=== PATIENT | female | born 1975 | race Caucasian/White ===

== ENCOUNTER 2023-10-07 20:17 | Observation (INO) ==
[2023-10-07] MEDS ORDERED: MUCOMYST 20% NEB NEB STA (20:45)
[2023-10-07] MEDS ORDERED: LACTATED RINGERS 1,000 ML IV STA (20:45)
[2023-10-07] MEDS ORDERED: ALBUTEROL 0.083% NEB NEB STA ×2 (20:45→22:05)
[2023-10-07] MEDS ORDERED: ZOSYN 3.375 GM 3.375 GM in SODIUM CHLORIDE 50 ML IV STA (20:45)
[2023-10-07] MEDS ORDERED: DUONEB NEB STA (20:45)
[2023-10-07 21:21] LABS: HEMATOCRIT 45.3 % (37.0-47.0); IMMATURE GRANULOCYTE % (AUTO) 0.4 % (0.0-5.0); LYMPHOCYTES # (AUTO) 0.4 K/uL (0.60-3.4); LYMPHOCYTES % (AUTO) 7.6 (10.0-50.0); MEAN CORPUSCULAR HEMOGLOBIN 31.1 pg (27.0-31.0); MEAN CORPUSCULAR HGB CONC 33.1 (31.8-35.4); MEAN CORPUSCULAR VOLUME 93.8 fl (81.0-99.0); MONOCYTES # (AUTO) 0.1 K/uL (0.4-2.0); MONOCYTES % (AUTO) 1.7 (0-10); NEUTROPHILS # (AUTO) 4.7 K/ul (2.0-6.9); NEUTROPHILS % (AUTO) 90.3 % (42.2-75.2); PLATELET COUNT 219 10^3/uL (140-440); RDW COEFFICIENT OF VARIATION 13.2 % (11.6-14.8); RED BLOOD COUNT 4.83 10^6/ul (4.20-5.40); WHITE BLOOD COUNT 5.25 K/ul (4.6-10.2)
--- NOTE | 2023-10-07 21:31 | ED.PDOC ---
General ED Provider: Dr. CHAPITO ELDRIDGE DO Chief Complaint: Shortness of Air Stated Complaint: 48-year-old female presents to the ER complaining of persistent cough and shortness of breath. This apparently is been going on since the beginning of August where she is been on 2 different rounds of antibiotics. She is currently on amoxicillin for reported strep throat. Denies measurable fever but has felt fevered. Denies sore throat but does report occasional cough and shortness of breath. No specific modifying factors. Reports mild chest pain as nonradiating substernal with no modifying factors. Denies abdominal pain, GI or symptoms. She is a current smoker and otherwise denies chronic medical problems. Denies recent travel, surgery, history of blood clots, cancer or hormone use. Time Seen by Provider: 10/07/23 20:24 Mode of Arrival: Walk-In Information Source: Patient Exam Limitations: No limitations Nursing and Triage Documentation Reviewed and Agree: Yes Review of Systems Review Of Systems Constitutional: Reports Chills, Fever, Malaise and Weakness; Denies Diaphoresis, Sweats or Loss of appetite Eyes: Reports No symptoms Ears, Nose, Mouth, Throat: Reports No symptoms Respiratory: Reports Cough and Shortness of Breath; Denies Stridor or Wheezing Cardiac: Reports Chest pain; Denies Edema or Irregular heart rate GI: Reports No symptoms : Reports No symptoms Musculoskeletal: Reports No symptoms Skin: Reports No symptoms Neurological: Reports No symptoms Endocrine: Reports No symptoms Hematologic/Lymphatic: Reports No symptoms All Other Systems: Reviewed and Negative PFSH Female Reproductive History Menstrual Hx Tubal Ligation: Yes Physical Exam Physical Exam Appearance: Reports Ill-appearing Ill-appearing: Moderate Pain Distress: None Eyes: Reports LORENA and Conjunctiva clear ENT: Reports Ears normal, Nose normal and Oropharynx normal Neck: Supple Respiratory: Reports Airway patent, Crackles and Rhonchi; Denies Breath sounds equal or Retractions Cardiovascular: Reports RRR and Pulses normal GI/: Reports Soft and Nontender Musculoskeletal: Reports Normal strength, ROM intact and No edema Skin: Reports Warm, Dry and Normal color Neurological: Reports Sensation intact, Motor intact, Reflexes intact and Cranial nerves intact Psychiatric: Reports Affect appropriate and Mood appropriate Re-Evaluation Re-Evaluation Time of Re-Evaluation: 00:19 Status: Improved Vital Signs Stable: Yes Appearance: NAD Lungs: Other (Improved.) Skin: Warm and Dry Neuro: Alert and Oriented X3 CV: RRR Critical Care Note Critical Care Note Total Critical Care Time (mins): 180 (Acute hypoxic respiratory failure requiring extended nebulizer treatment, cardiac monitoring, oxygen support, reassessments) Course Course 10/07/23 21:11 10/07/23 21:11 Orders, Labs, Meds: Lab Review 10/07/23 10/07/23 10/07/23 21:11 21:16 21:35 WBC 5.25 RBC 4.83 Hgb 15.0 Hct 45.3 MCV 93.8 MCH 31.1 H MCHC 33.1 RDW Coeff of Trish 13.2 Plt Count 219 Immature Gran % (Auto) 0.4 Neut % (Auto) 90.3 H Lymph % (Auto) 7.6 L [place] % (Auto) 1.7 Eos % (Auto) 0.0 Baso % (Auto) 0.0 Neut # (Auto) 4.7 Lymph # (Auto) 0.4 L [place] # (Auto) 0.1 L Eos # (Auto) 0.0 Baso # (Auto) 0.0 Immature Gran # (Auto) 0.0 Sodium 136.2 Potassium 4.52 Chloride 104.3 Carbon Dioxide 26.8 Anion Gap 9.62 BUN 8.2 Creatinine 0.62 Estimated GFR (MDRD) 104.00 BUN/Creatinine Ratio 13.22 Glucose 123.7 H Lactic Acid 0.73 Calcium 8.47 Total Bilirubin 0.18 L AST 72.0 H ALT 73.6 H Alkaline Phosphatase 89.2 NT-Pro-B Natriuret Pep 123 Total Protein 7.14 Albumin 3.86 Globulin 3.28 Albumin/Globulin Ratio 1.17 Procalcitonin < 0.05 Urine Color Yellow Urine Clarity Clear Urine pH 7.0 Ur Specific [place] 1.015 Urine Protein Negative Urine Glucose (UA) Negative Urine Ketones Negative Urine Blood 2+ H Urine Nitrite Negative Urine Bilirubin Negative Urine Urobilinogen 0.2 Ur Leukocyte Esterase Negative Urine Microscopic RBC 0-2 Urine Microscopic WBC 0-2 Ur Squamous Epith Cells 2-5 Urine Bacteria Trace Influ A Molecular Assay Positive by naat H Influ B Molecular Assay Positive by naat H SARS CoV-2 RNA Rapid KERON Negative Orders Category Date Time Status ADMIT PATIENT [facility] ADMISSION 10/08/23 00:08 Ordered EKG-(ED ONLY) Stat CARDIO 10/07/23 21:31 Completed NEBULIZER TREATMENT Routine CARDIO 10/08/23 00:12 Ordered NEBULIZER TREATMENT Stat CARDIO 10/07/23 20:48 Completed NEBULIZER TREATMENT Stat CARDIO 10/07/23 22:05 Completed OXYGEN Routine CARDIO 10/08/23 00:13 Ordered ACTIVITY TID CARE 10/08/23 00:11 Ordered NPO REMINDER: IMAGING ONCE CARE 10/07/23 22:13 Active TELEMETRY MONITORING TELE CARE 10/08/23 00:08 Ordered VITAL SIGNS Q4HR CARE 10/08/23 00:08 Ordered REGULAR DIET DIETARY 10/08/23 Breakfast Ordered ED APPLY O2 .ONCE EMERGENCY 10/07/23 20:45 Active ED GROUND WATER TECHNICIAN APPLIED .ONCE EMERGENCY 10/07/23 20:45 Active ED VITAL SIGNS Q1HR EMERGENCY 10/07/23 20:45 Active BLOOD CULTURE (ED ONLY) Stat LAB 10/07/23 20:45 Ordered CBC W/ AUTO DIFF Stat LAB 10/07/23 21:11 Completed CBC W/ AUTO DIFF Timed LAB 10/08/23 06:00 Ordered COMPREHENSIVE METABOLIC PANEL Stat LAB 10/07/23 21:11 Completed COMPREHENSIVE METABOLIC PANEL Timed LAB 10/08/23 06:00 Ordered COVID [SARS COV-2 RNA RAPID KERON] Stat LAB 10/07/23 21:16 Completed FLU A & B MOLECULAR [FLU A/B MOLECULAR] Stat LAB 10/07/23 21:16 Completed LACTIC ACID Stat LAB 10/07/23 21:11 Completed MAGNESIUM Timed LAB 10/08/23 06:00 Ordered PROBNP ED [NT-PROBNP(ED)] Stat LAB 10/07/23 21:11 Completed PROCALCITONIN Stat LAB 10/07/23 21:11 Completed URINALYSIS C & S IF INDICATED Stat LAB 10/07/23 21:35 Completed Acetaminophen [Tylenol] Meds 10/08/23 00:08 Ordered 500 mg PO Q4-6H PRN Acetylcysteine [Mucomyst 20% Neb] Meds 10/07/23 20:45 Discontinued 200 mg NEB ONCE STA Albuterol Sulfate 0.083% Neb [Albuterol 0.083% Neb] Meds 10/07/23 22:05 Discontinued 2.5 mg NEB ONCE STA Albuterol Sulfate 0.083% Neb [Albuterol 0.083% Neb] Meds 10/07/23 20:45 Discontinued 7.5 mg NEB ONCE STA Ascorbic Acid [Vitamin C] Meds 10/08/23 00:17 Stat 500 mg PO ONCE STA Ipratropium/Albuterol Neb [Duoneb] Meds 10/07/23 20:45 Discontinued 3 ml NEB ONCE STA Ipratropium/Albuterol Neb [Duoneb] Meds 10/08/23 06:00 Ordered 3 ml NEB RTQ6H Lorazepam [Ativan] Meds 10/08/23 00:13 Ordered 1 mg IVP Q4-6H PRN Magnesium Sulfate [Magnesium Sulfate 1 gm/2 ml Vial] Meds 10/08/23 00:13 Once 1 gm IVP ONCE ONE Melatonin Meds 10/08/23 00:08 Ordered 6 mg PO BEDTIME PRN Methylprednisolone Sod Succ [Solu-Medrol 500 mg] 500 mg Meds 10/08/23 00:13 Ordered 0.9 % Sodium Chloride [Sodium Chloride 100Ml] 100 ml IV ONCE Methylprednisolone Sod Succ/Pf [Solu-Medrol 125 mg] 250 Meds 10/08/23 09:00 Ordered mg 0.9 % Sodium Chloride [Sodium Chloride] 50 ml IV BID Multivitamin [Multivitamin Tablet] Meds 10/08/23 09:00 Ordered 1 tab PO DAILY Nicotine 21 mg [Nicoderm 21 mg] Meds 10/08/23 00:13 Ordered 1 patch TD DAILY PRN Ondansetron HCl/Pf [Zofran 4 mg/2 ml] Meds 10/08/23 00:08 Ordered 4 mg IVP Q4HR PRN Piperacillin Sodium/Tazobactam [Zosyn 3.375 gm] 3.375 Meds 10/07/23 20:45 Discontinued gm 0.9 % Sodium Chloride [Sodium Chloride] 50 ml IV ONCE Ringers Lactated Solution [Lactated Ringers] 1,000 ml Meds 10/07/23 20:45 Discontinued IV BOLUS Zinc Sulfate [Zinc-220] Meds 10/08/23 00:17 Stat 220 mg PO ONCE STA RESUSCITATION STATUS Routine OTHERS 10/08/23 00:08 Ordered CHEST, 1V AP ONLY Timed RADS 10/08/23 06:00 Ordered CHEST, 2 VIEWS PA & LAT Stat RADS 10/07/23 20:45 Completed CTA CHEST PE PROTOCOL Stat RADS 10/07/23 22:13 Completed Medications Discontinued Medications Generic Name Dose Route Start Last Admin Trade Name Jj PRN Reason Stop Dose Admin Acetylcysteine 200 mg 10/07/23 20:45 10/07/23 22:15 Acetylcysteine 200 Mg/Ml 4 Ml Neb.Vial NEB 10/07/23 20:46 200 mg ONCE STA Administration Albuterol Sulfate 7.5 mg 10/07/23 20:45 10/07/23 21:22 Albuterol Sulfate 0.083% Vial.Neb NEB 10/07/23 20:46 7.5 mg ONCE STA Administration Albuterol Sulfate 2.5 mg 10/07/23 22:05 10/07/23 22:15 Albuterol Sulfate 0.083% Vial.Neb NEB 10/07/23 22:06 2.5 mg ONCE STA Administration Albuterol/Ipratropium 3 ml 10/07/23 20:45 10/07/23 21:14 Ipratropium/Albuterol Vial.Neb [facility] 10/07/23 20:46 3 ml ONCE STA Administration Lactated Ringer's 1,000 mls @ 1,000 mls/hr 10/07/23 20:45 10/07/23 23:58 Lactated Ringers IV 10/07/23 21:44 Infused BOLUS STA Infusion Piperacillin Sod/Tazobactam 50 mls @ 50 mls/hr 10/07/23 20:45 10/07/23 21:41 Sod 3.375 gm/ Sodium Chloride IV 10/07/23 21:44 50 mls/hr ONCE STA Administration Vital Signs: Temp Pulse Resp BP Pulse Ox O2 Flow Rate 10/07/23 20:45 2 10/07/23 20:34 97.7 F 101 H 26 H 99/67 88 L Discharge Plan Discharge Patient Disposition: ADMITTED INPATIENT Discharge Problem: Acute hypoxemic respiratory failure, COPD exacerbation, Influenza Prescriptions: No Action amoxicillin 500 mg capsule 500 mg PO BID Patient Comments: TAKE 1 CAPSULE BY MOUTH TWICE DAILY FOR 10 DAYS, STARTED 10/04/23 methylprednisolone 4 mg tablets,dose pack 4 mg PO DIRECTED Patient Comments: FOLLOW PACKAGE DIRECTIONS/ STARTED ON 10/04/23 Did you review [place] [employer] for ALL controlled substances?: Not Applicable ED Provider: CHAPITO ELDRIDGE Condition: Stable Physician Progress Note: 48-year-old female presents to the ER with shortness of breath. She is hypoxic on presentation with oxygen saturations in the low to mid 80s. She is not tachycardic but her heart rate is maintaining in the 90s. Afebrile on presentation. Infection not excluded given her history. Sepsis considered and sepsis protocol initiated with respect to laboratory workup and initial treatment with 30 cc/kg bolus as well as antibiotics. Coarse breath sounds bilaterally suggest pneumonia. [place] but she is not PERC negative. PE considered. Doubt other acute cardiopulmonary processes to include not limited to ACS, RI, pneumothorax, dissection, tamponade or CHF []
[2023-10-07 21:35] LABS: ALANINE AMINOTRANSFERASE 73.6 U/L (0-35); ALBUMIN 3.86 g/dL (3.5-5.0); ALKALINE PHOSPHATASE 89.2 U/L (38-126); BILIRUBIN,TOTAL 0.18 mg/dL (0.2-1.3); BLOOD UREA NITROGEN 8.2 mg/dL (7-17); CALCIUM 8.47 mg/dL (8.4-10.2); CARBON DIOXIDE 26.8 mmol/L (22-30.0); CHLORIDE 104.3 mmol/L (98-107); CREATININE 0.62 mg/dL (0.60-1.30); GLUCOSE 123.7 mg/dL (74-106); POTASSIUM 4.52 mmol/L (3.5-5.1); SODIUM 136.2 mmol/L (134.5-145); TOTAL PROTEIN 7.14 g/dL (6.3-8.2)
--- NOTE | 2023-10-07 21:57 | DI ---
EXAM: CHEST RADIOGRAPH TECHNIQUE: Two views. Frontal and lateral. HISTORY: Cough. Fever and hypoxia. COMPARISON: 09/14/2023. FINDINGS: The lungs are clear. The heart size is normal. Cardiac loop recorder. There is no pleural effusion. There is no pneumothorax. IMPRESSION: 1. Cardiac loop recorder. 2. Otherwise unremarkable chest radiograph.
[2023-10-07 22:04] LABS: MOLECULAR FLU B POSITIVE BY NAAT (NEGATIVE)
[2023-10-07 22:11] LABS: SARS COV-2 RNA RAPID NAAT NEGATIVE (NEGATIVE)
[2023-10-07 22:14] LABS: BILIRUBIN,URINE Negative (NEGATIVE); CLARITY,URINE Clear (CLEAR); COLOR,URINE Yellow (YELLOW); GLUCOSE, URINE (UA) Negative (NEGATIVE); KETONES,URINE Negative (NEGATIVE); LEUKOCYTE ESTERASE ,URINE Negative (NEGATIVE); NITRITE,URINE Negative (NEGATIVE); PROTEIN,URINE Negative (NEGATIVE); URINE, BLOOD 2+ (NEGATIVE); UROBILINOGEN,URINE 0.2 (0.2)
[2023-10-07 22:19] LABS: BACTERIA,URINE TRACE (NOT PRESENT); URINE WBC, MICROSCOPIC 0-2 (0-2)
[2023-10-07 22:20] LABS: URINE RBC, MICROSCOPIC 0-2 (0-2)
--- NOTE | 2023-10-07 23:39 | CT ---
EXAM: CT ANGIOGRAPHY OF THE CHEST History: Chest pain, shortness of breath Technique: 1.[address] of the chest utilizing CT angiography protocol. Multiplanar and maximum intensity projection reformations were performed. FINDINGS: Technically adequate for evaluation of pulmonary arteries and aorta. There are no pulmona ry artery filling defects. Lung windows show mild emphysematous change. No infiltrative or consolid ative opacities. The aorta is normal. Normal heart and pericardium. No acute chest wall abnormalit y. No abnormalities of the upper abdomen. Impression: 1. No evidence of pulmonary artery thrombus 2. Emphysema 3. No acute findings of the chest All CT scans are performed using dose optimization techniques as appropriate to the performed exam an d include at least one of the following: Automated exposure control, adjustment of the mA and/or kV according t o size, and the use of iterative reconstruction technique.
[2023-10-08] MEDS ORDERED: MELATONIN PO PRN (00:08)
[2023-10-08] MEDS ORDERED: TYLENOL PO PRN (00:08)
[2023-10-08] MEDS ORDERED: ZOFRAN 4 MG/2 ML IVP PRN (00:08)
[2023-10-08] MEDS ORDERED: ATIVAN IVP PRN (00:13)
[2023-10-08] MEDS ORDERED: MAGNESIUM SULFATE 1 GM/2 ML VIAL IVP ONE (00:13)
[2023-10-08] MEDS ORDERED: SODIUM CHLORIDE IV ONE (00:13)
[2023-10-08] MEDS ORDERED: NICODERM 21 MG TD PRN (00:13)
[2023-10-08] MEDS ORDERED: SOLU MEDROL IV ONE (00:13)
[2023-10-08] MEDS ORDERED: ZINC-220 PO STA (00:17)
[2023-10-08] MEDS ORDERED: VITAMIN C PO STA (00:17)
[2023-10-08 00:45] LABS: MOLECULAR FLU A NEGATIVE BY NAAT (NEGATIVE)
[2023-10-08 01:38] VITALS: BMI 26.6
[2023-10-08] MEDS ORDERED: SOLU MEDROL 500 MG ONE (01:54)
[2023-10-08] MEDS: DUONEB NEB SCH ×4 (05:05→23:38)
[2023-10-08 05:32] LABS: BASOPHILS % (AUTO) 0.3 % (0.0-3.0); HEMATOCRIT 41.2 % (37.0-47.0); HEMOGLOBIN 13.5 g/dl (12.0-16.0); IMMATURE GRANULOCYTE % (AUTO) 0.3 % (0.0-5.0); LYMPHOCYTES # (AUTO) 0.4 K/uL (0.60-3.4); LYMPHOCYTES % (AUTO) 10.8 (10.0-50.0); MEAN CORPUSCULAR HEMOGLOBIN 31.3 pg (27.0-31.0); MEAN CORPUSCULAR HGB CONC 32.8 (31.8-35.4); MEAN CORPUSCULAR VOLUME 95.6 fl (81.0-99.0); MONOCYTES # (AUTO) 0.1 K/uL (0.4-2.0); MONOCYTES % (AUTO) 1.8 (0-10); NEUTROPHILS # (AUTO) 3.5 K/ul (2.0-6.9); NEUTROPHILS % (AUTO) 86.8 % (42.2-75.2); PLATELET COUNT 189 10^3/uL (140-440); RDW COEFFICIENT OF VARIATION 13.2 % (11.6-14.8); RED BLOOD COUNT 4.31 10^6/ul (4.20-5.40)
[2023-10-08 05:45] LABS: ALANINE AMINOTRANSFERASE 59.7 U/L (0-35); ALBUMIN 3.39 g/dL (3.5-5.0); ALKALINE PHOSPHATASE 76.2 U/L (38-126); ASPARTATE AMINO TRANSFERASE 61.9 U/L (14-36); BILIRUBIN,TOTAL 0.25 mg/dL (0.2-1.3); BLOOD UREA NITROGEN 9.9 mg/dL (7-17); CALCIUM 7.84 mg/dL (8.4-10.2); CARBON DIOXIDE 26.6 mmol/L (22-30.0); CREATININE 0.49 mg/dL (0.60-1.30); GLUCOSE 144.8 mg/dL (74-106); MAGNESIUM 2.28 mg/dL (1.6-2.3); POTASSIUM 3.96 mmol/L (3.5-5.1); TOTAL PROTEIN 6.35 g/dL (6.3-8.2)
[2023-10-08] MEDS ORDERED: SOLU-MEDROL 125 MG 250 MG in SODIUM CHLORIDE 50 ML IV SCH (09:00)
[2023-10-08] MEDS: AMOXICILLIN PO SCH ×2 (09:08→20:24)
[2023-10-08] MEDS: MULTIVITAMIN TABLET PO SCH (09:09)
--- NOTE | 2023-10-08 10:04 | PCM.SS ---
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 (ICD-10) Implantable loop recorder present Z95.818 - Presence of other cardiac implants and grafts (ICD-10) Surgical History (Updated 10/08/23 @ 01:44 by GRACIELA SHAH, STEVEN) H/O reconstruction of anterior cruciate ligament tear Z98.890 - Other specified postprocedural states (ICD-10) Family History (Updated 10/08/23 @ 01:44 by GRACIELA SHAH RN) FATHER Colon cancer Social History (Updated 10/08/23 @ 01:44 by GRACILEA SHAH RN) Smoking and tobacco status: Current every day smoker Tobacco type: cigarettes Medications Mecications: Medications at Discharge (Home Meds & RX) amoxicillin 500 mg capsule 500 mg PO BID 10/07/23 methylprednisolone 4 mg tablets in a dose pack 4 mg PO DIRECTED 10/07/23 Allergies Allergies Allergy/AdvReac Type Severity Reaction Status Date / Time No Known Allergies Allergy Verified 10/07/23 20:53 Vital Signs (Last 4 Hours) Vital Signs Last 4 Hours: Vital Signs: Last 4 Hours 10/08/23 07:00 10/08/23 08:00 Oxygen Delivery Method Nasal Cannula Oxygen Flow Rate 2 Telemetry Type Remote Telemetry Telemetry Monitoring Continues Telemetry Heart Rate 73 Telemetry SPO2 92 L EKG ND Interval 0.16 EKG QRS Interval 0.08 Telemetry Strip Reading SR Labs This Visit Labs This Visit: Labs This Visit 10/07/23 10/07/23 10/07/23 21:11 21:16 21:35 WBC 5.25 RBC 4.83 Hgb 15.0 Hct 45.3 MCV 93.8 MCH 31.1 H MCHC 33.1 RDW Coeff of Rtish 13.2 Plt Count 219 Immature Gran % (Auto) 0.4 Neut % (Auto) 90.3 H Lymph % (Auto) 7.6 L [place] % (Auto) 1.7 Eos % (Auto) 0.0 Baso % (Auto) 0.0 Neut # (Auto) 4.7 Lymph # (Auto) 0.4 L [place] # (Auto) 0.1 L Eos # (Auto) 0.0 Baso # (Auto) 0.0 Immature Gran # (Auto) 0.0 Sodium 136.2 Potassium 4.52 Chloride 104.3 Carbon Dioxide 26.8 Anion Gap 9.62 BUN 8.2 Creatinine 0.62 Estimated GFR (MDRD) 104.00 BUN/Creatinine Ratio 13.22 Glucose 123.7 H Lactic Acid 0.73 Calcium 8.47 Magnesium Total Bilirubin 0.18 L AST 72.0 H ALT 73.6 H Alkaline Phosphatase 89.2 NT-Pro-B Natriuret Pep 123 Total Protein 7.14 Albumin 3.86 Globulin 3.28 Albumin/Globulin Ratio 1.17 Procalcitonin < 0.05 Urine Color Yellow Urine Clarity Clear Urine pH 7.0 Ur Specific [place] 1.015 Urine Protein Negative Urine Glucose (UA) Negative Urine Ketones Negative Urine Blood 2+ H Urine Nitrite Negative Urine Bilirubin Negative Urine Urobilinogen 0.2 Ur Leukocyte Esterase Negative Urine Microscopic RBC 0-2 Urine Microscopic WBC 0-2 Ur Squamous Epith Cells 2-5 Urine Bacteria Trace Influ A Molecular Assay Negative by naat Influ B Molecular Assay Positive by naat H SARS CoV-2 RNA Rapid KERON Negative 10/08/23 05:21 WBC 4.00 L RBC 4.31 Hgb 13.5 Hct 41.2 MCV 95.6 MCH 31.3 H MCHC 32.8 RDW Coeff of Trish 13.2 Plt Count 189 Immature Gran % (Auto) 0.3 Neut % (Auto) 86.8 H Lymph % (Auto) 10.8 [place] % (Auto) 1.8 Eos % (Auto) 0.0 Baso % (Auto) 0.3 Neut # (Auto) 3.5 Lymph # (Auto) 0.4 L [place] # (Auto) 0.1 L Eos # (Auto) 0.0 Baso # (Auto) 0.0 Immature Gran # (Auto) 0.0 Sodium 134.0 L Potassium 3.96 Chloride 104.0 Carbon Dioxide 26.6 Anion Gap 7.36 BUN 9.9 Creatinine 0.49 L Estimated GFR (MDRD) 136.00 BUN/Creatinine Ratio 20.20 Glucose 144.8 H Lactic Acid Calcium 7.84 L Magnesium 2.28 Total Bilirubin 0.25 AST 61.9 H ALT 59.7 H Alkaline Phosphatase 76.2 NT-Pro-B Natriuret Pep Total Protein 6.35 Albumin 3.39 L Globulin 2.96 Albumin/Globulin Ratio 1.14 Procalcitonin Urine Color Urine Clarity Urine pH Ur Specific [place] Urine Protein Urine Glucose (UA) Urine Ketones Urine Blood Urine Nitrite Urine Bilirubin Urine Urobilinogen Ur Leukocyte Esterase Urine Microscopic RBC Urine Microscopic WBC Ur Squamous Epith Cells Urine Bacteria Influ A Molecular Assay Influ B Molecular Assay SARS CoV-2 RNA Rapid KERON Review Review Statement: I have independently reviewed and interpreted the labs/EKGs/imaging that were ordered by the ER provider. I have reviewed all outside records that are available currently in our EMR including imaging/notes/labs from previous visits. Plan Additional Planning: Case discussed with ED Physician, []. DVT Prophylaxis: Advanced Care Planning: [] minutes spent discussing advance care planning. Smoking Cessation: 3-10 minutes spent discussing smoking cessation. Disposition: Admit to: Discussed Plan of Care with [] If patient discharged with Left Ventricular Systolic Dysfunction: Discharged with a beta sergey? [] If no, why not? [] Discharged with an vanessa/arb? [] If no, why not? [] Review With Patient Reviewed with Patient and Family: Patient and family have been counseled on condition and care plan and have no immediate questions. I have personally discussed and reviewed the patient's visit/current labs/imaging/decision making with Dr. Glenys Oreilly, my supervising attending. Total number of minutes spent with patient [ ] min. More than 50% of the time spent with this patient was devoted to counseling and coordination of care. Time of Admission:10/08/23 00:31 Time of Discharge: Discharge Plan Discharge Discharge Orders: Discharge Patient (ONCE); Ordered 10/08/23 Ordered By: GIO VICK Prescriptions: No Action amoxicillin 500 mg capsule 500 mg PO BID Patient Comments: TAKE 1 CAPSULE BY MOUTH TWICE DAILY FOR 10 DAYS, STARTED 10/04/23 methylprednisolone 4 mg tablets,dose pack 4 mg PO DIRECTED Patient Comments: FOLLOW PACKAGE DIRECTIONS/ STARTED ON 10/04/23 Condition: Stable
[2023-10-08] MEDS: TAMIFLU CAPSULE PO SCH ×2 (10:10→20:24)
--- NOTE | 2023-10-08 10:45 | DI ---
EXAM: CHEST RADIOGRAPH (1 VIEW) TECHNIQUE: Frontal Chest Radiograph. HISTORY: Shortness of breath. COMPARISON: Chest radiograph 10/07/2023 FINDINGS: Lines, Tubes, Devices: Left chest wall loop recorder Lungs and Pleura: No focal consolidation. No pleural effusion. No pneumothorax. No pulmonary edema . Small calcified granuloma in the left upper lobe. Cardiomediastinum: Normal cardiomediastinal silhouette. No aortic calcifications. Bones/Soft Tissues: No acute osseous abnormality. No soft tissue abnormality. Upper Abdomen: Within normal limits. IMPRESSION: No acute radiographic abnormality.
--- NOTE | 2023-10-08 11:10 | PCM ---
Date of Service Date Seen by Provider: 10/08/23 Time Seen by Provider: 09:00 Admit Day/Time Admission Date: 10/08/23 Admission Time: 00:08 Reason for Admission Chief Complaint: COPD W/ EXACERBATION, INFLUENZA B Hospital Provider Hospital Provider: GIO VICK PA-C, [facility] History of Present Illness History of Present Illness: Patient is a 48 year old female who presented to ER with cc of sob. Patient was diagnosed with strep on Thursday 10/04. She was prescribed amoxicillin which she has been taking. She states she started to feel bad again with cough and sob. It progressively worsened. She has had some body aches that come and go. In the ER she was found to be flu B+. She was given solumedrol IV, and neb treatments. She had saturation in the 80s and was placed on 2L. Patient admitted to med surg. On my evaluation this morning patient is feeling better. Still on 2L. She would like to try to go home today. Tried weaning down her O2 but she dropped into the 80s again. Discussed tamiflu, borderline out of the window, she would still like to take it. Case Discussed With Case Discussed With: Patient's case was discussed with the ER Physicians, Dr. 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 (ICD-10) Implantable loop recorder present Z95.818 - Presence of other cardiac implants and grafts (ICD-10) Surgical History H/O reconstruction of anterior cruciate ligament tear Z98.890 - Other specified postprocedural states (ICD-10) Family History FATHER Colon cancer Social History Smoking and tobacco status: Current every day smoker Tobacco type: cigarettes Allergies Allergies Allergy/AdvReac Type Severity Reaction Status Date / Time No Known Allergies Allergy Verified 10/07/23 20:53 Current Medications Home Medications amoxicillin 500 mg capsule 500 mg PO BID 10/07/23 [History Confirmed 10/07/23 Last Taken Unknown] methylprednisolone 4 mg tablets in a dose pack 4 mg PO DIRECTED 10/07/23 [History Confirmed 10/07/23 Last Taken Unknown] Home Acetaminophen (Acetaminophen 500 Mg Tablet) 500 mg PO Q4-6H PRN PRN Reason: FEVER/PAIN Albuterol/Ipratropium (Ipratropium/Albuterol Vial.Neb) 3 ml NEB RTQ6H TOBY Last Admin: 10/08/23 05:05 Dose: 3 ml Amoxicillin (Amoxicillin 500 Mg Capsule) 500 mg PO BID TOBY Stop: 10/13/23 22:00 Last Admin: 10/08/23 09:08 Dose: 500 mg Melatonin (Melatonin 3 Mg Tablet) 6 mg PO BEDTIME PRN PRN Reason: Insomnia Multivitamins (Multivitamin 1 Tab) 1 tab PO DAILY TOBY Last Admin: 10/08/23 09:09 Dose: 1 tab Nicotine (Nicotine 21 Mg Patch.Td24) 1 patch TD DAILY PRN PRN Reason: nicotine withdrawl Ondansetron HCl (Ondansetron Hcl/Pf 4 Mg/2 Ml Sdv) 4 mg IVP Q4HR PRN PRN Reason: Nausea / Vomiting Oseltamivir Phosphate (Oseltamivir Phosphate 75 Mg Capsule) 75 mg PO Q12HR TOBY Stop: 10/12/23 21:01 Last Admin: 10/08/23 10:10 Dose: 75 mg Discontinued Medications Acetylcysteine (Acetylcysteine 200 Mg/Ml 4 Ml Neb.Vial) 200 mg NEB ONCE STA Stop: 10/07/23 20:46 Last Admin: 10/07/23 22:15 Dose: 200 mg Albuterol Sulfate (Albuterol Sulfate 0.083% Vial.Neb) 7.5 mg NEB ONCE STA Stop: 10/07/23 20:46 Last Admin: 10/07/23 21:22 Dose: 7.5 mg Albuterol Sulfate (Albuterol Sulfate 0.083% Vial.Neb) 2.5 mg NEB ONCE STA Stop: 10/07/23 22:06 Last Admin: 10/07/23 22:15 Dose: 2.5 mg Albuterol/Ipratropium (Ipratropium/Albuterol Vial.Neb) 3 ml NEB ONCE STA Stop: 10/07/23 20:46 Last Admin: 10/07/23 21:14 Dose: 3 ml Ascorbic Acid (Ascorbic Acid 500 Mg Tablet) 500 mg PO ONCE STA Stop: 10/08/23 00:18 Last Admin: 10/08/23 01:42 Dose: 500 mg Lactated Ringer's (Lactated Ringers) 1,000 mls @ 1,000 mls/hr IV BOLUS STA Stop: 10/07/23 21:44 Last Infusion: 10/07/23 23:58 Dose: Infused Piperacillin Sod/Tazobactam (Sod 3.375 gm/ Sodium Chloride) 50 mls @ 50 mls/hr IV ONCE STA Stop: 10/07/23 21:44 Last Admin: 10/07/23 21:41 Dose: 50 mls/hr Methylprednisolone Sodium Succinate 500 mg/ Sodium Chloride 100 mls @ 200 mls/hr IV ONCE ONE Stop: 10/08/23 00:42 Last Admin: 10/08/23 01:59 Dose: 200 mls/hr Lorazepam (Lorazepam Inj 2 Mg/Ml Vial) 1 mg IVP Q4-6H PRN PRN Reason: Agitation Magnesium Sulfate (Magnesium Sulfate Vial 1 Gm/2 Ml Vial) 1 gm IVP ONCE ONE Stop: 10/08/23 00:14 Last Admin: 10/08/23 01:06 Dose: 1 gm Zinc Sulfate (Zinc Sulfate 220 Mg Capsule) 220 mg PO ONCE STA Stop: 10/08/23 00:18 Last Admin: 10/08/23 01:42 Dose: 220 mg Review of Systems Constitutional: Reports Fatigue and Weakness; Denies Fever Head: Reports Normocephalic and Atraumatic Throat: Reports Sore Throat Cardiovascular: Denies Chest pain, Chest Pressure or Edema Respiratory: Reports Cough and Shortness of air Gastrointestinal: Denies Nausea, Vomiting, Diarrhea, Abdominal pain or Melena Genitourinary: Denies Dysuria or Frequency Dermatologic: Denies Rashes Physical examination Most Recent Vital Signs: Most Recent Vital Signs Temperature 97.5 F L 10/08/23 10:00 Temperature Source Oral 10/08/23 10:00 Temperature Source Infrared 10/07/23 20:34 Pulse Rate 71 10/08/23 10:00 Respiratory Rate 19 10/08/23 10:00 Blood Pressure 100/65 10/08/23 10:00 Blood Pressure Mean 76 10/08/23 10:00 Blood Pressure Left Arm 103/66 10/08/23 01:29 Blood Pressure Location Right Arm 10/08/23 10:00 Blood Pressure Position Sitting 10/08/23 10:00 O2 Sat by Pulse Oximetry 91 L 10/08/23 10:00 Oxygen Delivery Method Nasal Cannula 10/08/23 10:00 Oxygen Flow Rate 1 10/08/23 10:00 Height 5 ft 4 in 10/08/23 01:29 Weight 154 lb 14.4 oz 10/08/23 01:29 Telemetry Type Remote Telemetry 10/08/23 07:00 Telemetry Monitoring Continues 10/08/23 07:00 Telemetry Heart Rate 73 10/08/23 07:00 Telemetry SPO2 92 L 10/08/23 07:00 EKG [place] Interval 0.16 10/08/23 07:00 EKG QRS Interval 0.08 10/08/23 07:00 Telemetry Strip Reading SR 10/08/23 07:00 Appearance: Positive No Apparent Distress and Alert and Oriented x3 Skin: Positive [place], Warm and Good Turgor; Negative Rashes HEENT: Positive Normocephalic and Atraumatic Neck: Positive Supple and Midline Trachea Chest/Lungs: Positive Symmetrical With Equal Breath Sounds; Negative Rales, Rhonci or Wheezes Heart: Positive RRR GI/: Positive Soft, Nontender, Bowel Sounds Normal and No Distention Extremities: Negative Edema Neurological: Positive Cranial Nerves Intact, Alert, Oriented and Muscle Strength 5/5 in Upper and Lower Extremities Bilaterally Psychiatric: Positive Oriented x4, Appropriate Mood and Appropriate Affect Labs This Visit Labs This Visit: Labs This Visit 10/07/23 10/07/23 10/07/23 21:11 21:16 21:35 WBC 5.25 RBC 4.83 Hgb 15.0 Hct 45.3 MCV 93.8 MCH 31.1 H MCHC 33.1 RDW Coeff of Trish 13.2 Plt Count 219 Immature Gran % (Auto) 0.4 Neut % (Auto) 90.3 H Lymph % (Auto) 7.6 L [place] % (Auto) 1.7 Eos % (Auto) 0.0 Baso % (Auto) 0.0 Neut # (Auto) 4.7 Lymph # (Auto) 0.4 L [place] # (Auto) 0.1 L Eos # (Auto) 0.0 Baso # (Auto) 0.0 Immature Gran # (Auto) 0.0 Sodium 136.2 Potassium 4.52 Chloride 104.3 Carbon Dioxide 26.8 Anion Gap 9.62 BUN 8.2 Creatinine 0.62 Estimated GFR (MDRD) 104.00 BUN/Creatinine Ratio 13.22 Glucose 123.7 H Lactic Acid 0.73 Calcium 8.47 Magnesium Total Bilirubin 0.18 L AST 72.0 H ALT 73.6 H Alkaline Phosphatase 89.2 NT-Pro-B Natriuret Pep 123 Total Protein 7.14 Albumin 3.86 Globulin 3.28 Albumin/Globulin Ratio 1.17 Procalcitonin < 0.05 Urine Color Yellow Urine Clarity Clear Urine pH 7.0 Ur Specific [place] 1.015 Urine Protein Negative Urine Glucose (UA) Negative Urine Ketones Negative Urine Blood 2+ H Urine Nitrite Negative Urine Bilirubin Negative Urine Urobilinogen 0.2 Ur Leukocyte Esterase Negative Urine Microscopic RBC 0-2 Urine Microscopic WBC 0-2 Ur Squamous Epith Cells 2-5 Urine Bacteria Trace Influ A Molecular Assay Negative by naat Influ B Molecular Assay Positive by naat H SARS CoV-2 RNA Rapid KERON Negative 10/08/23 05:21 WBC 4.00 L RBC 4.31 Hgb 13.5 Hct 41.2 MCV 95.6 MCH 31.3 H MCHC 32.8 RDW Coeff of Trish 13.2 Plt Count 189 Immature Gran % (Auto) 0.3 Neut % (Auto) 86.8 H Lymph % (Auto) 10.8 [place] % (Auto) 1.8 Eos % (Auto) 0.0 Baso % (Auto) 0.3 Neut # (Auto) 3.5 Lymph # (Auto) 0.4 L [place] # (Auto) 0.1 L Eos # (Auto) 0.0 Baso # (Auto) 0.0 Immature Gran # (Auto) 0.0 Sodium 134.0 L Potassium 3.96 Chloride 104.0 Carbon Dioxide 26.6 Anion Gap 7.36 BUN 9.9 Creatinine 0.49 L Estimated GFR (MDRD) 136.00 BUN/Creatinine Ratio 20.20 Glucose 144.8 H Lactic Acid Calcium 7.84 L Magnesium 2.28 Total Bilirubin 0.25 AST 61.9 H ALT 59.7 H Alkaline Phosphatase 76.2 NT-Pro-B Natriuret Pep Total Protein 6.35 Albumin 3.39 L Globulin 2.96 Albumin/Globulin Ratio 1.14 Procalcitonin Urine Color Urine Clarity Urine pH Ur Specific [place] Urine Protein Urine Glucose (UA) Urine Ketones Urine Blood Urine Nitrite Urine Bilirubin Urine Urobilinogen Ur Leukocyte Esterase Urine Microscopic RBC Urine Microscopic WBC Ur Squamous Epith Cells Urine Bacteria Influ A Molecular Assay Influ B Molecular Assay SARS CoV-2 RNA Rapid KERON Imaging Imaging: EXAM: CHEST RADIOGRAPH TECHNIQUE: Two views. Frontal and lateral. HISTORY: Cough. Fever and hypoxia. COMPARISON: 09/14/2023. FINDINGS: The lungs are clear. The heart size is normal. Cardiac loop recorder. There is no pleural effusion. There is no pneumothorax. IMPRESSION: 1. Cardiac loop recorder. 2. Otherwise unremarkable chest radiograph. EXAM: CT ANGIOGRAPHY OF THE CHEST History: Chest pain, shortness of breath Technique: 1.[address] of the chest utilizing CT angiography protocol. Multiplanar and maximum intensity projection reformations were performed. FINDINGS: Technically adequate for evaluation of pulmonary arteries and aorta. There are no pulmonary artery filling defects. Lung windows show mild emphysematous change. No infiltrative or consolidative opacities. The aorta is normal. Normal heart and pericardium. No acute chest wall abnormality. No abnormalities of the upper abdomen. Impression: 1. No evidence of pulmonary artery thrombus 2. Emphysema 3. No acute findings of the chest EXAM: CHEST RADIOGRAPH (1 VIEW) TECHNIQUE: Frontal Chest Radiograph. HISTORY: Shortness of breath. COMPARISON: Chest radiograph 10/07/2023 FINDINGS: Lines, Tubes, Devices: Left chest wall loop recorder Lungs and Pleura: No focal consolidation. No pleural effusion. No pneumothorax. No pulmonary edema. Small calcified granuloma in the left upper lobe. Cardiomediastinum: Normal cardiomediastinal silhouette. No aortic calcifications. Bones/Soft Tissues: No acute osseous abnormality. No soft tissue abnormality. Upper Abdomen: Within normal limits. IMPRESSION: No acute radiographic abnormality. Review Statement Review Statement: I have independently reviewed and interpreted the labs/EKGs/imaging that were ordered by the ER provider. I have reviewed all outside records that are available currently in our EMR including imaging/notes/labs from previous visits. Plan Plan: 1. Acute hypoxic respiratory failure in setting of influenza B - Start tamiflu bid. RT consult. O2, nebs. Wean O2 when able. Received 500 mg IVP solumedrol in ER. Failed weaning O2 today, pt dropped into the 80s. 2. Influenza B - Cont plan as above 3. Acute streptococcal pharyngitis - Cont amoxicillin bid. It was reported in the middle of the night that there was a positive blood culture for gram positive cocci in one anaerobe bottle. Discussed with lab, it is too early to read and likely a contaminant. Will await further results. DVT Prophylaxis: Ambulation Time Spent: Greater than 80 minutes spent with patient, 50% of the time spent with this patient was devoted to counseling and coordination of care. [facility] minutes spent discussing advance care planning. FULL CODE Smoking Cessation: 3 minutes spent discussing smoking cessation. Admit to: Inpatient Discussed Plan of Care with Dr. Glenys Oreilly. Medications Medication Orders: Medications Ordered Category Date Time Status Acetaminophen [Tylenol] Meds 10/08/23 00:08 Active 500 mg PO Q4-6H PRN Amoxicillin Meds 10/08/23 09:00 Active 500 mg PO BID Ipratropium/Albuterol Neb [Duoneb] Meds 10/08/23 06:00 Active 3 ml NEB RTQ6H Melatonin Meds 10/08/23 00:08 Active 6 mg PO BEDTIME PRN Multivitamin [Multivitamin Tablet] Meds 10/08/23 09:00 Active 1 tab PO DAILY Nicotine 21 mg [Nicoderm 21 mg] Meds 10/08/23 00:13 Active 1 patch TD DAILY PRN Ondansetron HCl/Pf [Zofran 4 mg/2 ml] Meds 10/08/23 00:08 Active 4 mg IVP Q4HR PRN Oseltamivir Phosphate Capsule [Tamiflu Capsule] Meds 10/08/23 09:40 Active 75 mg PO Q12HR
[2023-10-09] MEDS: DUONEB NEB SCH ×2 (05:36→11:12)
[2023-10-09 06:53] LABS: BASOPHILS % (AUTO) 0.1 % (0.0-3.0); HEMATOCRIT 38.9 % (37.0-47.0); HEMOGLOBIN 12.6 g/dl (12.0-16.0); IMMATURE GRANULOCYTE % (AUTO) 0.4 % (0.0-5.0); LYMPHOCYTES # (AUTO) 1.5 K/uL (0.60-3.4); LYMPHOCYTES % (AUTO) 14.1 (10.0-50.0); MEAN CORPUSCULAR HGB CONC 32.4 (31.8-35.4); MEAN CORPUSCULAR VOLUME 95.6 fl (81.0-99.0); MONOCYTES # (AUTO) 0.9 K/uL (0.4-2.0); MONOCYTES % (AUTO) 8.1 (0-10); NEUTROPHILS # (AUTO) 8.4 K/ul (2.0-6.9); NEUTROPHILS % (AUTO) 77.3 % (42.2-75.2); PLATELET COUNT 207 10^3/uL (140-440); RDW COEFFICIENT OF VARIATION 13.4 % (11.6-14.8); RED BLOOD COUNT 4.07 10^6/ul (4.20-5.40)
[2023-10-09 07:04] LABS: ALANINE AMINOTRANSFERASE 46.9 U/L (0-35); ALBUMIN 3.12 g/dL (3.5-5.0); ALKALINE PHOSPHATASE 59.8 U/L (38-126); ASPARTATE AMINO TRANSFERASE 38.7 U/L (14-36); BILIRUBIN,TOTAL 0.15 mg/dL (0.2-1.3); BLOOD UREA NITROGEN 15.1 mg/dL (7-17); CALCIUM 7.86 mg/dL (8.4-10.2); CHLORIDE 104.9 mmol/L (98-107); CREATININE 0.61 mg/dL (0.60-1.30); GLUCOSE 106.3 mg/dL (74-106); POTASSIUM 3.85 mmol/L (3.5-5.1); SODIUM 135.3 mmol/L (134.5-145); TOTAL PROTEIN 5.96 g/dL (6.3-8.2)
[2023-10-09] MEDS: AMOXICILLIN PO SCH (08:57)
[2023-10-09] MEDS: MULTIVITAMIN TABLET PO SCH (08:57)
[2023-10-09] MEDS: TAMIFLU CAPSULE PO SCH (08:57)
[2023-10-09 10:13] VITALS: BP 99/69; PULSE 76; RESP 18; TEMP 97.5
--- NOTE | 2023-10-09 10:56 | DCSUM ---
Admission Date Admission Date: 10/07/23 Discharge Date Discharge Date: 10/09/23 Admission Diagnosis Admission Diagnosis: 1. Acute hypoxic respiratory failure in setting of influenza B 2. Influenza B 3. Acute streptococcal pharyngitis Discharge Diagnosis Discharge Diagnosis: 1. Acute hypoxic respiratory failure in setting of influenza B - RESOLVED 2. Influenza B 3. Acute streptococcal pharyngitis Hospital Provider Hospital [facility] Summary of History and Physical Summary of History and Physical: Patient is a 48 year old female who presented to ER with cc of sob. Patient was diagnosed with strep on Thursday 10/04. She was prescribed amoxicillin which she has been taking. She states she started to feel bad again with cough and sob. It progressively worsened. She has had some body aches that come and go. In the ER she was found to be flu B+. She was given solumedrol IV, and neb treatments. She had saturation in the 80s and was placed on 2L. Patient admitted to med surg. On my evaluation this morning patient is feeling better. Still on 2L. She would like to try to go home today. Tried weaning down her O2 but she dropped into the 80s again. Discussed tamiflu, borderline out of the window, she would still like to take it. Hospital Course Subjective: Patient was continued on amoxicillin for her strep. She was treated with tamiflu for flu B+. Required 2L to maintain O2 saturation. She was able to be weaned to RA. Did not qualify for home O2. She is requesting to be discharged. Will discharge with remainder of tamiflu. Appearance: Pleasant, No Apparent Distress and Alert HEENT: MMM CVS: No Murmur Abdomen: Soft, Non-Tender and No Distention Respiratory: No Dyspnea Extremities: No Edema Vital Signs: Most Recent Vital Signs Temperature 97.5 F L 10/09/23 10:00 Temperature Source Oral 10/09/23 10:00 Temperature Source Infrared 10/07/23 20:34 Pulse Rate 76 10/09/23 10:00 Respiratory Rate 18 10/09/23 10:00 Blood Pressure 99/69 10/09/23 10:00 Blood Pressure Mean 79 10/09/23 10:00 Blood Pressure Left Arm 103/66 10/08/23 01:29 Blood Pressure Location Right Arm 10/09/23 10:00 Blood Pressure Position Sitting 10/09/23 10:00 O2 Sat by Pulse Oximetry 95 10/09/23 10:00 Oxygen Delivery Method Nasal Cannula 10/09/23 10:00 Oxygen Flow Rate 1 10/09/23 10:00 Height 5 ft 4 in 10/08/23 01:29 Weight 154 lb 14.4 oz 10/08/23 01:29 Telemetry Type Remote Telemetry 10/09/23 07:00 Telemetry Monitoring Continues 10/09/23 07:00 Telemetry Heart Rate 70 10/09/23 07:00 Telemetry SPO2 92 L 10/09/23 07:00 EKG GA Interval 0.12 10/09/23 07:00 EKG QRS Interval 0.06 10/09/23 07:00 Telemetry Strip Reading sr 10/09/23 07:00 Imaging: EXAM: CHEST RADIOGRAPH TECHNIQUE: Two views. Frontal and lateral. HISTORY: Cough. Fever and hypoxia. COMPARISON: 09/14/2023. FINDINGS: The lungs are clear. The heart size is normal. Cardiac loop recorder. There is no pleural effusion. There is no pneumothorax. IMPRESSION: 1. Cardiac loop recorder. 2. Otherwise unremarkable chest radiograph. EXAM: CHEST RADIOGRAPH (1 VIEW) TECHNIQUE: Frontal Chest Radiograph. HISTORY: Shortness of breath. COMPARISON: Chest radiograph 10/07/2023 FINDINGS: Lines, Tubes, Devices: Left chest wall loop recorder Lungs and Pleura: No focal consolidation. No pleural effusion. No pneumothorax. No pulmonary edema. Small calcified granuloma in the left upper lobe. Cardiomediastinum: Normal cardiomediastinal silhouette. No aortic calcifications. Bones/Soft Tissues: No acute osseous abnormality. No soft tissue abnormality. Upper Abdomen: Within normal limits. IMPRESSION: No acute radiographic abnormality. Lab Results Last 24 Hours: 10/09/23 06:45 WBC 10.80 H D RBC 4.07 L Hgb 12.6 Hct 38.9 MCV 95.6 MCH 31.0 MCHC 32.4 RDW Coeff of Trish 13.4 Plt Count 207 Immature Gran % (Auto) 0.4 Neut % (Auto) 77.3 H Lymph % (Auto) 14.1 [place] % (Auto) 8.1 Eos % (Auto) 0.0 Baso % (Auto) 0.1 Neut # (Auto) 8.4 H Lymph # (Auto) 1.5 [place] # (Auto) 0.9 Eos # (Auto) 0.0 Baso # (Auto) 0.0 Immature Gran # (Auto) 0.0 Sodium 135.3 Potassium 3.85 Chloride 104.9 Carbon Dioxide 30.0 Anion Gap 4.25 BUN 15.1 Creatinine 0.61 Estimated GFR (MDRD) 106.00 BUN/Creatinine Ratio 24.75 Glucose 106.3 H Calcium 7.86 L Total Bilirubin 0.15 L AST 38.7 H ALT 46.9 H Alkaline Phosphatase 59.8 Total Protein 5.96 L Albumin 3.12 L Globulin 2.84 Albumin/Globulin Ratio 1.09 Discharge Instructions Discharge Planning: Discharge Planning > [address] Glenys Oreilly. Discharge Medications: Medications at Discharge (Home Meds & RX) amoxicillin 500 mg capsule 500 mg PO BID 10/07/23 methylprednisolone 4 mg tablets in a dose pack 4 mg PO DIRECTED 10/07/23 Tamiflu 75 mg bid Discharge Plan Discharge Discharge Orders: Discharge Patient (ONCE); Ordered 10/09/23 Ordered By: GIO VICK Activity Restrictions/Additional Instructions: DISCHARGE TO HOME DX: ACUTE RESPIRATORY FAILURE, INFLUENZA CONTINUE ANTIBIOTIC FOR STREP UNTIL FINISHED PHARMACY: [facility] FINISH TAMIFLU STAY HYDRATED TYLENOL NEEDED FOR FEVER DIET: NORMAL RETURN WITH WORSENING SYMPTOMS CONTINUE INCENTIVE SPIROMETRY MULTIPLE TIMES PER DAY Instructions: Influenza (GEN), Acute Respiratory Failure (GEN) Patient Disposition: HOME SELF-CARE Prescriptions: New oseltamivir [Tamiflu] 75 mg capsule 75 mg PO BID Qty: 7 0RF Rx Instructions: start tonight 10/09/23, 7 total doses left Continued amoxicillin 500 mg capsule 500 mg PO BID Patient Comments: TAKE 1 CAPSULE BY MOUTH TWICE DAILY FOR 10 DAYS, STARTED 10/04/23 methylprednisolone 4 mg tablets,dose pack 4 mg PO DIRECTED Patient Comments: FOLLOW PACKAGE DIRECTIONS/ STARTED ON 10/04/23 Did you review [place] [employer] for ALL controlled substances?: Not Applicable Discussed opioids are addictive and Narcan is available by prescription or from pharmacy.: No Condition: Stable
== END 2023-10-09 13:11 | disposition home or self-care (01) ==
LOC: ED 20:17 → INTOOBSV 10-08 00:31 → MEDSURG B 10-08 00:31
PROVIDERS: ADMIT Hospitalist; ATTEND Physician Assistant
DX: J02.0 Streptococcal pharyngitis; J11.1 Influenza due to unidentified influenza virus with other respiratory manifestations; F17.210 Nicotine dependence, cigarettes, uncomplicated; R07.9 Chest pain, unspecified; J96.01 Acute respiratory failure with hypoxia; J44.1 Chronic obstructive pulmonary disease with (acute) exacerbation; Z20.822 Contact with and (suspected) exposure to COVID-19